=== PATIENT | female | born 1960 | race Caucasian/White ===

== ENCOUNTER 2022-07-13 13:54 | Emergency (ER) | payer BC, SELFPAY ==
[2022-07-13 14:01] VITALS: BP 147/83; PULSE 93; RESP 18; TEMP 36.1; O2SAT 98; BMI 28.6
--- NOTE | 2022-07-13 14:20 | ED.WOUNDLAC ---
HPI - Wound/Laceration General Time Seen by Provider: 14:20 Date Seen: 07/13/22 Chief Complaint: Laceration/Wound Stated Complaint: Stepped on a nail Time Seen by Provider: 07/13/22 14:10 Source: patient and RN notes reviewed Mode of arrival: ambulatory Limitations: no limitations History of Present Illness HPI narrative: Patient is a 62-year-old female coming to the ER after stepping on a nail in the yard. It went through her sole and was a ashok nail. She had contacted the clinic in her tetanus was up-to-date in 2018, thus is up-to-date for this injury. This happened just prior to arrival. Related Data Home Medications Medication Instructions Recorded Confirmed No Known Home Medications 07/13/22 07/13/22 Allergies Allergy/AdvReac Type Severity Reaction Status Date / Time Sulfa (Sulfonamide Allergy Verified 07/13/22 14:01 Antibiotics) Review of Systems Narrative: As per HPI PFSH PFSH Social History Smoking Status: Never smoker Do you use any of these nicotine containing products: None How often do you have a drink containing alcohol: monthly or less AUDIT-C Alcohol total score: 1 Non-prescribed substance use: denies use Exam Const: Vital Signs, click to edit/add: Vital Signs - 24 hr 07/13/22 14:01 Temperature 96.9 F L Pulse Rate [Right Pulse Oximeter] 93 Respiratory Rate 18 Blood Pressure [Ri ght Upper Arm] 147/83 H Pulse Oximetry 98 Oxygen Delivery Me thod Room Air Documenting provider has reviewed patient's vital signs: yes Extremity: Other: She was removed and on the outer aspect of her left heel she has a puncture wound, not actively bleeding at this time. A little serosanguineous fluid at the opening. There is no surrounding erythema. This is a few mm and slightly jagged appearance. No swelling around the area. She is tender when I palpate. Course Course Hospital Course: Will have this wound cleaned by ED staff. Have reviewed with the patient that her tetanus is up-to-date. She will need to watch for infection, I have already reviewed this with her. If infection should ensue, coverage for Pseudomonas will be needed as the nail went through her rubber soled shoe. Vital Signs Vital signs: Initial Vital Signs Temperature 96.9 F L 07/13/22 14:01 Temperature Source Temporal Artery Scan 07/13/22 14:01 Pulse Rate 93 07/13/22 14:01 Respiratory Rate 18 07/13/22 14:01 Blood Pressure 147/83 H 07/13/22 14:01 Blood Pressure Mean 104 07/13/22 14:01 Blood Pressure Position Sitting 07/13/22 14:01 Pulse Oximetry 98 07/13/22 14:01 Oxygen Delivery Method 07/13/22 14:01 Vital Signs Temperature 96.9 F L 07/13/22 14:01 Pulse Rate 93 07/13/22 14:01 Respiratory Rate 18 07/13/22 14:01 Blood Pressure 147/83 H 07/13/22 14:01 Pulse Oximetry 98 07/13/22 14:01 Oxygen Delivery Method 07/13/22 14:01 Temperature 96.9 F L 07/13/22 14:01 Pulse Rate 93 07/13/22 14:01 Respiratory Rate 18 07/13/22 14:01 Blood Pressure 147/83 H 07/13/22 14:01 Pulse Oximetry 98 07/13/22 14:01 Oxygen Delivery Method 07/13/22 14:01 Critical Care Time Critical Care Time Critical Care Time: No Discharge Plan Discharge Clinical Impression: Puncture wound of foot Patient Disposition: Home, Self-Care Condition: Stable Instructions: Puncture Wound in the Foot (ED) Additional Instructions: Need to watch this wound closely for infection. I would bandage it while you are up and walking around, can stay open to air at night when sleeping as long as it is not draining. Should this area start to become more swollen, red, have purulent drainage or you develop a fever with this, need re-evaluation. Your tetanus is up-to-date. I would definitely try to keep the wound clean for the next 1-2 weeks until it is healed. Activity Level: Activity as Tolerated Prescriptions: No Action No Known Home Medications Stand Alone Forms: [employer] Info Instructions
== END 2022-07-13 15:35 | disposition home or self-care (01) ==
PROVIDERS: Emergency Provider Family Medicine; PCP Surgery
DX: S91.342A Puncture wound with foreign body, left foot, initial encounter (principal); W45.0XXA Nail entering through skin, initial encounter
CPT/HCPCS: 99282; 99283

== ENCOUNTER 2023-05-18 15:45 | Outpatient (RCR) | payer BC, MEDICARE, SELFPAY | END 2023-07-04 14:45 | disposition home or self-care (01) | PROVIDERS: PCP Surgery; Visit Provider Family Medicine | DX: M50.30 Other cervical disc degeneration, unspecified cervical region (principal); M79.641 Pain in right hand; Z51.89 Encounter for other specified aftercare | CPT/HCPCS: 97012; 97110; 97140; 97161 ==

== ENCOUNTER 2025-02-13 08:30 | Outpatient (RCR) | payer MEDICARE, BC, SELFPAY | END 2025-03-12 08:05 | disposition home or self-care (01) | PROVIDERS: PCP Surgery; Visit Provider Surgery | DX: G56.03 Carpal tunnel syndrome, bilateral upper limbs (principal); Z51.89 Encounter for other specified aftercare | CPT/HCPCS: 97035; 97110; 97140; 97165; X5282 ==